=== PATIENT | male | born 1960 | race Caucasian/White ===

== ENCOUNTER 2017-04-23 19:02 | Emergency (ER) | payer BC, OTHER ==
[2017-04-23] MEDS ORDERED: Alum Hydrox/Mag Hydrox/Simeth 15 ML, Metoclopramide 5 MG, Lidocaine 2% 5 ML PO ONE ×3 (19:23)
[2017-04-23] MEDS ORDERED: Sodium Chloride 0.9% 1,000 ML IV ONE (19:23)
[2017-04-23] MEDS ORDERED: Pantoprazole 40 MG Vial IVPUSH ONE (19:23)
[2017-04-23] MEDS ORDERED: Ondansetron 4 MG/2 ML SDV IVPUSH ONE (19:24)
--- NOTE | 2017-04-23 19:24 | EDM.PDOC ---
ED HPI GENERAL MEDICAL PROBLEM - General Chief Complaint: Gastrointestinal Problem Stated Complaint: ACID REFLUX Time Seen by Provider: 04/23/17 19:24 Source of Information: Reports: Patient - History of Present Illness INITIAL COMMENTS - FREE TEXT/NARRATIVE: HISTORY AND PHYSICAL: History of present illness: [Patient has a history of acid reflux who presents with epigastric pain and burning that has increased over the last week, he has a 12 year history of acid reflux has no actual chest pain shortness of breath diaphoresis no radiation arm neck or jaw He follows with primary care out of [place] in [place], he is reestablishing here in [facility], his new primary is scheduling him for EGD. No fever nausea vomiting diarrhea constipation chest pain shortness breath headache dizziness palpitation about a urine symptoms Patient is aware of associated triggers for acid reflux he denies alcohol smoking or caffeine use he denies spine C foods he does use ibuprofen intermittently for neck pain and Excedrin for headaches but he minimizes this use due to the reflux ] Review of systems: As per history of present illness and below otherwise all systems reviewed and negative. Past medical history: As per history of present illness and as reviewed below otherwise noncontributory. Surgical history: As per history of present illness and as reviewed below otherwise noncontributory. Social history: No reported history of drug or alcohol abuse. Family history: As per history of present illness and as reviewed below otherwise noncontributory. Physical exam: HEENT: Atraumatic, normocephalic, pupils reactive, negative for conjunctival pallor or scleral icterus, mucous membranes moist, throat clear, neck supple, nontender, trachea midline. Lungs: Clear to auscultation, breath sounds equal bilaterally, chest nontender. Heart: S1S2, regular, negative for clicks, rubs, or JVD. Abdomen: Soft, nondistended, nontender. Negative for masses or hepatosplenomegaly. Negative for costovertebral tenderness. Pelvis: Stable nontender. Genitourinary: Deferred. Rectal: Deferred. Extremities: Atraumatic, negative for cords or calf pain. Neurovascular unremarkable. Neuro: Awake, alert, oriented. Cranial nerves II through XII unremarkable. Cerebellum unremarkable. Motor and sensory unremarkable throughout. Exam nonfocal. Diagnostics: []CBC, CMP, UA, troponin and amylase lipase EKG Therapeutics: [1 L normal saline bolus Zofran 8 mg IV GI cocktail Protonix 80 mg IV Continue omeprazole 40 mg daily Zantac 150 milligrams by mouth twice a day may benefit ] Impression: [Acid reflux] Definitive disposition and diagnosis as appropriate pending reevaluation and review of above. Epigastric Pain Score (Numeric/FACES): 2 - Related Data Allergies Allergy/AdvReac Type Severity Reaction Status Date / Time codeine Allergy Difficulty Verified 04/23/17 19:23 Breathing Home Meds: Home Meds Omeprazole Magnesium [Prilosec Otc] 20 mg PO BID 04/23/17 [History] ED ROS GENERAL - Review of Systems Review Of Systems: ROS reveals no pertinent complaints other than HPI. ED EXAM, GENERAL - Physical Exam Exam: See Below Course - Vital Signs Last Recorded V/S: Last Vital Signs Temp 36.4 C 04/23/17 19:19 Pulse 80 04/23/17 19:19 Resp 18 04/23/17 19:19 BP 134/93 H 04/23/17 19:19 Pulse Ox 97 04/23/17 19:19 - Orders/Labs/Meds Orders: Active Orders 24 hr Category Date Time Status Sodium Chloride 0.9% [Normal Saline] 1,000 ml Med 04/23/17 19:23 Active IV STAT Medication Orders Sodium Chloride (Normal Saline) 1,000 mls @ 999 mls/hr IV STAT ONE Stop: 04/23/17 20:23 Last Admin: 04/23/17 20:02 Dose: 999 mls/hr Labs: Laboratory Tests 04/23/17 04/23/17 Range/Units 19:40 19:40 WBC 7.33 (4.0-11.0) K/uL RBC 4.63 (4.50-5.90) M/uL Hgb 14.7 (13.0-17.0) g/dL Hct 42.2 (38.0-50.0) % MCV 91.1 (80.0-98.0) fL MCH 31.7 (27.0-32.0) pg MCHC 34.8 (31.0-37.0) g/dL RDW Std Deviation 43.5 (28.0-62.0) fl RDW Coeff of Will 13 (11.0-15.0) % Plt Count 220 (150-400) K/uL MPV 9.40 (7.40-12.00) fL Neut % (Auto) 56.9 (48.0-80.0) % Lymph % (Auto) 32.5 (16.0-40.0) % [place] % (Auto) 7.9 (0.0-15.0) % Eos % (Auto) 1.5 (0.0-7.0) % Baso % (Auto) 1.2 (0.0-1.5) % Neut # (Auto) 4.2 (1.4-5.7) K/uL Lymph # (Auto) 2.4 (0.6-2.4) K/uL [place] # (Auto) 0.6 (0.0-0.8) K/uL Eos # (Auto) 0.1 (0.0-0.7) K/uL Baso # (Auto) 0.1 (0.0-0.1) K/uL Nucleated RBC % 0.0 /100WBC Nucleated RBCs # 0 K/uL Sodium 140 (136-146) mmol/L Potassium 3.8 (3.5-5.1) mmol/L Chloride 108 (98-110) mmol/L Carbon Dioxide 23 (21-31) mmol/L BUN 13 (6.0-23.0) mg/dL Creatinine 0.9 (0.6-1.5) mg/dL Est Cr Clr Drug Dosing 84.67 mL/min Estimated GFR (MDRD) > 60.0 ml/min Glucose 80 (60-110) mg/dL Calcium 9.5 (8.8-10.8) mg/dL Total Bilirubin 0.9 (0.1-1.5) mg/dL AST 19 (5-40) IU/L ALT 21 (8-54) IU/L Alkaline Phosphatase 46 (40-150) Troponin I < 0.10 (0.0-0.29) NG/ML Total Protein 7.4 (6.0-8.0) g/dL Albumin 4.7 (3.5-5.0) g/dL Globulin 2.7 (2.0-3.5) g/dL Albumin/Globulin Ratio 1.7 (1.3-2.8) Amylase 43 (10-90) U/L Lipase 43 (7-80) U/L Meds: Medications Generic Name Dose Route Start Last Admin Trade Name Freq PRN Reason Stop Dose Admin Sodium Chloride 1,000 mls @ 999 mls/hr 04/23/17 19:23 04/23/17 20:02 Normal Saline IV 04/23/17 20:23 999 mls/hr STAT ONE Administration Discontinued Medications Generic Name Dose Route Start Last Admin Trade Name Liliana PRN Reason Stop Dose Admin Al Hydroxide/Mg Hydroxide 15 0 ml 04/23/17 19:23 04/23/17 19:55 ml/ Metoclopramide HCl 5 mg/ PO 04/23/17 19:24 15 each Lidocaine HCl 5 ml ONETIME ONE Administration Ondansetron HCl 8 mg 04/23/17 19:24 04/23/17 19:56 Zofran IVPUSH 04/23/17 19:25 8 mg ONETIME ONE Administration Pantoprazole Sodium 80 mg 04/23/17 19:23 04/23/17 20:03 Protonix Iv IVPUSH 04/23/17 19:24 80 mg .BOLUS ONE Administration Departure - Departure Time of Disposition: 20:21 Disposition: Home, Self-Care 01 Condition: Good Clinical Impression: Acid reflux - Discharge Information Referrals: PCP,None [Primary Care Provider] - Forms: ED Department Discharge Additional Instructions: Continue omeprazole 40 mg by mouth daily Zantac 150 mg by mouth twice a day Tums may benefit Avoid triggers of acid reflux as discussed Follow with your new primary and continue on with EGD The following information is given to patients seen in the emergency department who are being discharged to home. This information is to outline your options for follow-up care. We provide all patients seen in our emergency department with a follow-up referral. The need for follow-up, as well as the timing and circumstances, are variable depending upon the specifics of your emergency department visit. If you don't have a primary care physician on staff, we will provide you with a referral. We always advise you to contact your personal physician following an emergency department visit to inform them of the circumstance of the visit and for follow-up with them and/or the need for any referrals to a consulting specialist. The emergency department will also refer you to a specialist when appropriate. This referral assures that you have the opportunity for follow-up care with a specialist. All of these measure are taken in an effort to provide you with optimal care, which includes your follow-up. Under all circumstances we always encourage you to contact your private physician who remains a resource for coordinating your care. When calling for follow-up care, please make the office aware that this follow-up is from your recent emergency room visit. If for any reason you are refused follow-up, please contact the [facility] emergency department at and asked to speak to the emergency department charge nurse. - My Orders Last 24 Hours: My Active Orders 04/23/17 19:23 Sodium Chloride 0.9% [Normal Saline] 1,000 ml IV STAT - Assessment/Plan Last 24 Hours: My Active Orders 04/23/17 19:23 Sodium Chloride 0.9% [Normal Saline] 1,000 ml IV STAT
[2017-04-23 20:11] LABS: CHLORIDE,CL 108 mmol/L (98-110); SODIUM,NA 140 mmol/L (136-146)
== END 2017-04-23 20:43 | disposition home or self-care (01) ==
LOC: MW.ED 19:02
DX: K21.9 Gastro-esophageal reflux disease without esophagitis (principal); Z88.5 Allergy status to narcotic agent
CPT/HCPCS: 80053; 82150; 83690; 84484; 85025; 93005; 96361; 96374; 96375; 99284; A9270; C9113; J2405; J7040; 99283

== ENCOUNTER 2017-06-17 10:24 | Day surgery (SDC) | payer BC ==
[~2017-06-17 10:24] MED LIST: Lactated Ringers 1,000 ML IV SCH; Lidocaine 2% 5 ML SDV ONE; Propofol 200 MG/20 ML SDV ONE; Sodium Chloride 0.9% 10 ML Syringe FLUSH PRN; Sodium Chloride 0.9% 2.5 ML Syringe FLUSH PRN; fentaNYL 100 MCG/2 ML SDV ONE
--- NOTE | 2017-06-17 11:12 | PCM.PREANE ---
Preanesthetic Assessment - Anesthesia/Transfusion/Family Hx Anesthesia History: Prior Anesthesia Without Reaction Family History of Anesthesia Reaction: No Transfusion History: No Prior Transfusion(s) Intubation History: Unknown - Review of Systems General: No Symptoms Pulmonary: No Symptoms Cardiovascular: No Symptoms Gastrointestinal: Abdominal Pain, Difficulty Swallowing Neurological: No Symptoms Other: Reports: None - Physical Assessment O2 Sat by Pulse Oximetry: 96 Respiratory Rate: 16 Vital Signs: Last Vital Signs Temp 36.9 C 06/17/17 11:07 Pulse 77 06/17/17 11:07 Resp 16 06/17/17 11:07 BP 131/84 06/17/17 11:07 Pulse Ox 96 06/17/17 11:07 Height: 1.7 m Weight: 89.811 kg ASA Class: 2 Mental Status: Alert & Oriented x3 Airway Class: Mallampati = 2 Dentition: Reports: Normal Dentition Thyro-Mental Finger Breadths: 3 Mouth Opening Finger Breadths: 3 ROM/Head Extension: Full Lungs: Clear to Auscultation, Normal Respiratory Effort Cardiovascular: Regular Rate, Regular Rhythm - Allergies Allergies/Adverse Reactions: Allergies Allergy/AdvReac Type Severity Reaction Status Date / Time adhesive tape Allergy Rash Verified 06/15/17 10:52 codeine Allergy Difficulty Verified 06/15/17 10:51 Breathing - Blood Blood Available: No - Anesthesia Plan Pre-Op Medication Ordered: None - Acknowledgements Anesthesia Type Planned: MAC Pt an Appropriate Candidate for the Planned Anesthesia: Yes Alternatives and Risks of Anesthesia Discussed w Pt/Guardian: Yes Pt/Guardian Understands and Agrees with Anesthesia Plan: Yes PreAnesthesia Questionnaire HEENT History: Reports: Hard of Hearing Other HEENT History: uses reading glasses Gastrointestinal History: Reports: GERD Musculoskeletal History: Reports: Back Pain, Chronic, Fracture, Neck Pain, Chronic Other Musculoskeletal History: has pinched nerves in neck and back, hx of fx sternum and bilateral ankles Neurological History: Reports: Concussion, Headaches, Chronic, Head Trauma, Other (See Below) Other Neuro History: hx of motion sickness Endocrine/Metabolic History: Reports: Obesity/BMI 30+ - Past Surgical History GI Surgical History: Reports: Colonoscopy, EGD, Hernia, Inguinal (right inguinal hernia) Musculoskeletal Surgical History: Reports: Carpal Tunnel (bilateral CTR), Shoulder Surgery Other Musculoskeletal Surgeries/Procedures:: biceps and labrim repair - SUBSTANCE USE Smoking Status *Q: Never Smoker Recreational Drug Use History: No - HOME MEDS Home Medications: Home Meds Omeprazole Magnesium [Prilosec Otc] 20 mg PO BID 04/23/17 [History] traMADol [Ultram] 50 mg PO ASDIRECTED PRN 06/15/17 [History] - CURRENT (IN HOUSE) MEDS Current Meds: Current Medications Lactated Ringer's (Ringers, Lactated) 1,000 mls @ 125 mls/hr IV ASDIRECTED ANOOP Sodium Chloride (Saline Flush) 10 ml FLUSH ASDIRECTED PRN PRN Reason: Keep Vein Open Sodium Chloride (Saline Flush) 2.5 ml FLUSH ASDIRECTED PRN PRN Reason: Keep Vein Open Discontinued Medications Fentanyl (Sublimaze) Confirm Administered Dose 100 mcg .ROUTE .STK-MED ONE Stop: 06/17/17 08:47 Lidocaine (Xylocaine-Mpf 2%) Confirm Administered Dose 5 ml .ROUTE .STK-MED ONE Stop: 06/17/17 08:48 Propofol (Diprivan 20 Ml) Confirm Administered Dose 400 mg .ROUTE .STK-MED ONE Stop: 06/17/17 08:47
[2017-06-17] MEDS ORDERED: Propofol 200 MG/20 ML SDV ONE (12:16)
[2017-06-17] MEDS ORDERED: fentaNYL 100 MCG/2 ML SDV ONE (12:31)
--- NOTE | 2017-06-17 15:26 | PCM.OPNOTE ---
- General Post-Op/Procedure Note Date of Surgery/Procedure: 06/17/17 Operative Procedure(s): Diagnostic EGD and colonoscopy Findings: diverticulosis , gastritis, esophagitis Pre Op Diagnosis: Worsening heartburn, change in bowel habits Post-Op Diagnosis: Diverticulosis, gastritis, esophagitis Anesthesia Technique: MARIAELENA Primary Surgeon: Rocio Keita Condition: Good Free Text/Narrative:: Intake & Output 06/17/17 06/17/17 06/17/17 06:59 14:59 22:59 Intake Total 900 Balance 900
--- NOTE | 2017-06-18 21:03 | OR ---
SURGEON: ROCIO KEITA MD DATE OF PROCEDURE: 06/17/2017 PREOPERATIVE DIAGNOSES: Gastroesophageal reflux disease and change in bowel habits. POSTOPERATIVE DIAGNOSES: Gastritis and esophagitis, normal colonoscopy, diverticulosis. PROCEDURES PERFORMED: Diagnostic EGD and colonoscopy. ENDOSCOPIST: Rocio Keita M.D. ANESTHESIA: MAC. INSTRUMENT USED: Olympus endoscope and colonoscope. EXTENT OF EXAM: To the second portion of the duodenum, to the cecum. PREPARATION: Good. LIMITATIONS: None. INDICATIONS: The patient is a 57-year-old male who presents with changes in his bowel habits and worsening of his reflux. He was seen in the emergency room and treated with H2 tash and PPI therapy. Since then, his symptoms have gotten better and he has stopped his PPI therapy. We discussed the need for a diagnostic EGD and colonoscopy. We discussed the procedures as well as expected perioperative course. We discussed the risks, including bleeding, infection, or damage to surrounding structures including perforation. The patient verbalized understanding and wished to proceed. PROCEDURE IN DETAIL: The patient was brought into the endoscopy suite and placed in a left lateral decubitus position. A time-out was completed verifying the patient's name, age, date of , allergies, and procedure to be performed. A bite block was placed in the patient's mouth. Monitored anesthesia care was induced and continuous oxygen was provided via nasal cannula throughout the procedure. After adequate sedation was achieved, a well lubricated endoscope was placed in the patient's mouth and advanced under direct visualization to the level of the second portion of the duodenum. This appeared normal and a photograph was taken. The scope was then fully withdrawn while examining the color, texture, anatomy, and integrity of the mucosa of the upper GI tract. The duodenum appeared normal. The scope was brought into the stomach and a photograph taken of the GE junction as well as the pylorus. Both appeared normal. The patient appeared to have some mild gastritis. Biopsies were taken of the gastric body, antrum, and fundus and sent for H. pylori testing. Scope was brought into the distal esophagus. There appeared to be mild inflammation of the distal esophagus. The scope was then fully withdrawn and this portion of the procedure terminated. Digital rectal exam was performed. This exam was within normal limits. A well lubricated colonoscope was inserted in the rectum and advanced under direct visualization to the level of the cecum. Cecum was identified by both visual and anatomic landmarks. A photograph was taken of the cecal cap as well as the scope retroflexed within the cecum. The scope was then straightened out while examining the color, texture, anatomy, and integrity of the mucosa from the cecum to the anal canal. The patient was noted to have diverticulosis in the sigmoid colon. The scope was then brought into the rectum and retroflexed to allow visualization of the anal canal opening. This appeared normal and a photograph was taken. The scope was then straightened out and removed from the patient. The cecum to anus time was 6 minutes. The patient was transferred to the PACU in stable condition. ENDOSCOPIC DIAGNOSES: 1. Gastritis. 2. Esophagitis. 3. Diverticulosis. RECOMMENDATIONS: Follow up in clinic in 2 weeks. ALVARO JEWELL /[id number]
== END 2017-06-17 13:25 | disposition home or self-care (01) ==
LOC: MW.SDS 10:24
PROVIDERS: ATTEND Surgery
DX: K29.50 Unspecified chronic gastritis without bleeding (principal); K20.9 Esophagitis, unspecified; K57.30 Diverticulosis of large intestine without perforation or abscess without bleeding; K21.9 Gastro-esophageal reflux disease without esophagitis; Z98.890 Other specified postprocedural states; Z80.0 Family history of malignant neoplasm of digestive organs
CPT/HCPCS: 43239; 45378; J3010; J7120; 88305; 88312; J2704

== ENCOUNTER 2017-09-20 17:45 | Emergency (ER) | payer BC ==
--- NOTE | 2017-09-20 18:24 | EDM.PDOC ---
ED HPI GENERAL MEDICAL PROBLEM - General Chief Complaint: Headache Stated Complaint: HEADACHE Time Seen by Provider: 09/20/17 18:24 Source of Information: Reports: Patient History Limitations: Reports: No Limitations - History of Present Illness INITIAL COMMENTS - FREE TEXT/NARRATIVE: HISTORY AND PHYSICAL: []57-year-old male presents with headache History of Present Illness: []Patient has history of cluster headaches this headache has been going on for 3 days Patient generally takes Excedrin migraine and this does help with his headache Review of Systems: As per history of present illness and below otherwise all systems reviewed and negative. Past medical history: As per history of present illness and as reviewed below otherwise noncontributory. Surgical history: As per history of present illness and as reviewed below otherwise noncontributory. Social history: No reported history of drug or alcohol abuse. Family history: As per history of present illness and as reviewed below otherwise noncontributory. Physical exam: Alert and oriented gentleman who has erythematous eyes / slight edema. His questions appropriately in full sentences without any shortness of breath. HEENT: Atraumatic, normocehpalic, pupils reactive, negative for conjunctival pallor or scleral icterus, mucous membranes moist, throat clear, neck supple, nontender, trachea midline. Lungs: Clear to auscultation, breath sounds equal bilaterally, chest non tender. Heart: S1S2, regular, negative for clicks, rubs, or JVD. Extremities: Atraumatic, negative for cords or calf pain. Neurovascular unremarkable. Neuro: Awake, alert, oriented. Cranial nerves II through XII unremarkable. Cerebellum unremarkable. Motor and sensory unremarkable throughout. Exam nonfocal. Patient tolerated procedures well and headache has improved Recommended to patient that he go home and sleep Diagnostics: [] Therapeutics: [Ativan 1 mg IV Benadryl 25 IV Toradol 30 IV 1 L lactated Ringer's] Impression: [Cluster headache] Plan: [Discharged to home Sleep off work [address] Levi SIFUENTES [facility] [address] [place] [address], [address] [place] [address] Definitive disposition and diagnosis as appropriate pending reevaluation and review of above. Onset: Gradual Duration: Day(s): (3) Location: Reports: Head Quality: Reports: Same as Previous Episode Severity: Moderate Improves with: Reports: None Worsens with: Reports: None headache Pain Score (Numeric/FACES): 7 - Related Data Allergies Allergy/AdvReac Type Severity Reaction Status Date / Time adhesive tape Allergy Rash Verified 06/15/17 10:52 codeine Allergy Difficulty Verified 06/15/17 10:51 Breathing Home Meds: Home Meds Omeprazole Magnesium [Prilosec Otc] 20 mg PO BID 04/23/17 [History] Aspirin/Acetaminophen/Caffeine [Migraine Relief Caplet] 09/20/17 [History] Past Medical History HEENT History: Reports: Hard of Hearing Other HEENT History: uses reading glasses Gastrointestinal History: Reports: GERD Musculoskeletal History: Reports: Back Pain, Chronic, Fracture, Neck Pain, Chronic Other Musculoskeletal History: has pinched nerves in neck and back, hx of fx sternum and bilateral ankles Neurological History: Reports: Concussion, Headaches, Chronic, Head Trauma, Other (See Below) Other Neuro History: hx of motion sickness. Patient reports head injury in 1998 Psychiatric History: Reports: None Endocrine/Metabolic History: Reports: Obesity/BMI 30+ Hematologic History: Reports: None - Infectious Disease History Infectious Disease History: Reports: None - Past Surgical History GI Surgical History: Reports: Colonoscopy, EGD, Hernia, Inguinal Musculoskeletal Surgical History: Reports: Carpal Tunnel, Shoulder Surgery Other Musculoskeletal Surgeries/Procedures:: biceps and labrim repair Social & Family History - Family History Family Medical History: Noncontributory - Tobacco Use Smoking Status *Q: Unknown Ever Smoked Second Hand Smoke Exposure: No - Caffeine Use Caffeine Use: Reports: Coffee - Recreational Drug Use Recreational Drug Use: No Drug Use in Last 12 Months: No ED ROS GENERAL - Review of Systems Review Of Systems: ROS reveals no pertinent complaints other than HPI. - Physical Exam Exam: See Below (See dictation) Course - Vital Signs Last Recorded V/S: Last Vital Signs Temp 36.9 C 09/20/17 18:12 Pulse 90 09/20/17 18:12 Resp 16 09/20/17 18:12 BP 158/93 H 09/20/17 18:12 Pulse Ox 94 L 09/20/17 18:12 - Orders/Labs/Meds Orders: Active Orders 24 hr Category Date Time Status Oxygen Therapy, ED [RC] ASDIRECTED Care 09/20/17 18:30 Active Sodium Chloride 0.9% [Saline Flush] Med 09/20/17 18:30 Active 10 ml FLUSH ASDIRECTED PRN Sodium Chloride 0.9% [Saline Flush] Med 09/20/17 18:30 Active 2.5 ml FLUSH ASDIRECTED PRN Saline Lock Insert [OM.PC] Stat Oth 09/20/17 18:30 Ordered Medication Orders Sodium Chloride (Saline Flush) 10 ml FLUSH ASDIRECTED PRN PRN Reason: Keep Vein Open Sodium Chloride (Saline Flush) 2.5 ml FLUSH ASDIRECTED PRN PRN Reason: Keep Vein Open Meds: Medications Generic Name Dose Route Start Last Admin Trade Name Freq PRN Reason Stop Dose Admin Sodium Chloride 10 ml 09/20/17 18:30 Saline Flush FLUSH ASDIRECTED PRN Keep Vein Open Sodium Chloride 2.5 ml 09/20/17 18:30 Saline Flush FLUSH ASDIRECTED PRN Keep Vein Open Discontinued Medications Generic Name Dose Route Start Last Admin Trade Name Freq PRN Reason Stop Dose Admin Diphenhydramine HCl 25 mg 09/20/17 18:30 09/20/17 19:10 Benadryl IVPUSH 09/20/17 18:31 25 mg ONETIME ONE Administration Lactated Ringer's 1,000 mls @ 999 mls/hr 09/20/17 18:31 09/20/17 19:09 Ringers, Lactated IV 09/20/17 19:31 999 mls/hr .BOLUS ONE Administration Ketorolac Tromethamine 30 mg 09/20/17 18:33 09/20/17 19:10 Toradol IVPUSH 09/20/17 18:34 30 mg ONETIME ONE Administration Lorazepam 1 mg 09/20/17 18:30 09/20/17 19:11 Ativan IVPUSH 09/20/17 18:31 1 mg ONETIME ONE Administration Departure - Departure Time of Disposition: 20:00 Disposition: Home, Self-Care 01 Condition: Good Clinical Impression: Cluster headache syndrome - Discharge Information Instructions: Cluster Headache, [id number] Referrals: PCP,None [Primary Care Provider] - Anh Sims MD [Physician] - Forms: ED Department Discharge Additional Instructions: The following information is given to patients seen in the emergency department who are being discharged to home. This information is to outline your options for follow-up care. We provide all patients seen in our emergency department with a follow-up referral. The need for follow-up, as well as the timing and circumstances, are variable depending upon the specifics of your emergency department visit. If you don't have a primary care physician on staff, we will provide you with a referral. We always advise you to contact your personal physician following an emergency department visit to inform them of the circumstance of the visit and for follow-up with them and/or the need for any referrals to a consulting specialist. The emergency department will also refer you to a specialist when appropriate. This referral assures that you have the opportunity for followup care with a specialist. All of these measure are taken in an effort to provide you with optimal care, which includes your followup. Under all circumstances we always encourage you to contact your private physician who remains a resource for coordinating your care. When calling for followup care, please make the office aware that this follow-up is from your recent emergency room visit. If for any reason you are refused follow-up, please contact the [facility] emergency department at and asked to speak to the emergency department charge nurse. You were treated for cluster headaches Referral has been made for you to see the neurologist Dr. Anh Sims [facility] [address] [place] [address], [address] [place] [address] - My Orders Last 24 Hours: My Active Orders 09/20/17 18:30 Oxygen Therapy, ED [RC] ASDIRECTED Sodium Chloride 0.9% [Saline Flush] 10 ml FLUSH ASDIRECTED PRN Sodium Chloride 0.9% [Saline Flush] 2.5 ml FLUSH ASDIRECTED PRN Saline Lock Insert [OM.PC] Stat - Assessment/Plan Last 24 Hours: My Active Orders 09/20/17 18:30 Oxygen Therapy, ED [RC] ASDIRECTED Sodium Chloride 0.9% [Saline Flush] 10 ml FLUSH ASDIRECTED PRN Sodium Chloride 0.9% [Saline Flush] 2.5 ml FLUSH ASDIRECTED PRN Saline Lock Insert [OM.PC] Stat
[2017-09-20] MEDS ORDERED: diphenhydrAMINE 50 MG/ML SDV IVPUSH ONE (18:30)
[2017-09-20] MEDS ORDERED: LORazepam 2 MG/ML SDV IVPUSH ONE (18:30)
[2017-09-20] MEDS ORDERED: Sodium Chloride 0.9% 2.5 ML Syringe FLUSH PRN (18:30)
[2017-09-20] MEDS ORDERED: Sodium Chloride 0.9% 10 ML Syringe FLUSH PRN (18:30)
[2017-09-20] MEDS ORDERED: Lactated Ringers 1,000 ML IV ONE (18:31)
[2017-09-20] MEDS ORDERED: Ketorolac 30 MG/ML SDV IVPUSH ONE (18:33)
== END 2017-09-20 20:20 | disposition home or self-care (01) ==
LOC: MW.ED 17:45
DX: G44.009 Cluster headache syndrome, unspecified, not intractable (principal); Z88.5 Allergy status to narcotic agent; Z79.899 Other long term (current) drug therapy
CPT/HCPCS: 96361; 96374; 96375; 99283; J1200; J1885; J2060; J7120

== ENCOUNTER 2017-10-16 07:11 | Emergency (ER) | payer BC ==
[2017-10-16] MEDS ORDERED: Ondansetron 4 MG/2 ML SDV IVPUSH ONE (07:17)
[2017-10-16] MEDS ORDERED: Sodium Chloride 0.9% 1,000 ML IV ONE (07:17)
[2017-10-16] MEDS ORDERED: Ketorolac 30 MG/ML SDV IVPUSH ONE (07:17)
--- NOTE | 2017-10-16 07:19 | EDM.PDOC ---
ED HPI GENERAL MEDICAL PROBLEM - General Chief Complaint: General Stated Complaint: HEADACHE Time Seen by Provider: 10/16/17 07:18 Source of Information: Reports: Patient - History of Present Illness INITIAL COMMENTS - FREE TEXT/NARRATIVE: HISTORY AND PHYSICAL: History of present illness: []Patient with migraine history presents with 5 out of 10 headache denies nausea vomiting no scotomas, he has been treated through the emergency room in the past with Ativan, Benadryl, and Toradol with good result. He has been taking Imitrex 3 times daily without benefit he has appointment scheduled with neurology coming up within the next couple of weeks No fever nausea vomiting chills sweats no chest pain shortness breath dizziness or palpitation no bowel or urine symptoms Patient will take a taxi home post medication Review of systems: As per history of present illness and below otherwise all systems reviewed and negative. Past medical history: As per history of present illness and as reviewed below otherwise noncontributory. Surgical history: As per history of present illness and as reviewed below otherwise noncontributory. Social history: No reported history of drug or alcohol abuse. Family history: As per history of present illness and as reviewed below otherwise noncontributory. Physical exam: HEENT: Atraumatic, normocephalic, pupils reactive, negative for conjunctival pallor or scleral icterus, mucous membranes moist, throat clear, neck supple, nontender, trachea midline. Lungs: Clear to auscultation, breath sounds equal bilaterally, chest nontender. Heart: S1S2, regular, negative for clicks, rubs, or JVD. Abdomen: Soft, nondistended, nontender. Negative for masses or hepatosplenomegaly. Negative for costovertebral tenderness. Pelvis: Stable nontender. Genitourinary: Deferred. Rectal: Deferred. Extremities: Atraumatic, negative for cords or calf pain. Neurovascular unremarkable. Neuro: Awake, alert, oriented. Cranial nerves II through XII unremarkable. Cerebellum unremarkable. Motor and sensory unremarkable throughout. Exam nonfocal. Diagnostics: [CBC CMP UA ]Head CT no contrast Therapeutics: [1 L normal saline bolus Zofran 8 mg IV Toradol 30 mg IV ] Impression: [ headache ] Definitive disposition and diagnosis as appropriate pending reevaluation and review of above. Headache Pain Score (Numeric/FACES): 6 - Related Data Allergies Allergy/AdvReac Type Severity Reaction Status Date / Time adhesive tape Allergy Rash Verified 10/16/17 07:23 codeine Allergy Difficulty Verified 10/16/17 07:23 Breathing Home Meds: Home Meds Omeprazole Magnesium [Prilosec Otc] 20 mg PO BID 04/23/17 [History] Aspirin/Acetaminophen/Caffeine [Migraine Relief Caplet] 1 tab PO ASDIRECTED PRN 09/20/17 [History] Indomethacin 25 mg PO TID 10/16/17 [History] Past Medical History HEENT History: Reports: Hard of Hearing Other HEENT History: uses reading glasses Gastrointestinal History: Reports: GERD Musculoskeletal History: Reports: Back Pain, Chronic, Fracture, Neck Pain, Chronic Other Musculoskeletal History: has pinched nerves in neck and back, hx of fx sternum and bilateral ankles Neurological History: Reports: Concussion, Headaches, Chronic, Head Trauma, Other (See Below) Other Neuro History: hx of motion sickness. Patient reports head injury in 1998 Psychiatric History: Reports: None Endocrine/Metabolic History: Reports: Obesity/BMI 30+ Hematologic History: Reports: None - Infectious Disease History Infectious Disease History: Reports: None - Past Surgical History GI Surgical History: Reports: Colonoscopy, EGD, Hernia, Inguinal Musculoskeletal Surgical History: Reports: Carpal Tunnel, Shoulder Surgery Other Musculoskeletal Surgeries/Procedures:: biceps and labrim repair Social & Family History - Family History Family Medical History: Noncontributory - Tobacco Use Smoking Status *Q: Unknown Ever Smoked Second Hand Smoke Exposure: No - Caffeine Use Caffeine Use: Reports: Coffee - Recreational Drug Use Recreational Drug Use: No Drug Use in Last 12 Months: No ED ROS GENERAL - Review of Systems Review Of Systems: ROS reveals no pertinent complaints other than HPI. ED EXAM, GENERAL - Physical Exam Exam: See Below Course - Vital Signs Last Recorded V/S: Last Vital Signs Temp 97.5 F 10/16/17 07:20 Pulse 95 10/16/17 08:06 Resp 20 10/16/17 08:06 BP 141/93 H 10/16/17 08:06 Pulse Ox 95 10/16/17 08:06 - Orders/Labs/Meds Orders: Active Orders 24 hr Category Date Time Status Head wo Cont [CT] Stat Exams 10/16/17 07:31 Taken Labs: Laboratory Tests 10/16/17 10/16/17 Range/Units 07:29 07:29 WBC 5.02 (4.0-11.0) K/uL RBC 4.63 (4.50-5.90) M/uL Hgb 14.6 (13.0-17.0) g/dL Hct 42.6 (38.0-50.0) % MCV 92.0 (80.0-98.0) fL MCH 31.5 (27.0-32.0) pg MCHC 34.3 (31.0-37.0) g/dL RDW Std Deviation 44.8 (28.0-62.0) fl RDW Coeff of Will 13 (11.0-15.0) % Plt Count 208 (150-400) K/uL MPV 9.30 (7.40-12.00) fL Neut % (Auto) 58.9 (48.0-80.0) % Lymph % (Auto) 30.1 (16.0-40.0) % [place] % (Auto) 6.4 (0.0-15.0) % Eos % (Auto) 2.8 (0.0-7.0) % Baso % (Auto) 1.8 H (0.0-1.5) % Neut # (Auto) 3.0 (1.4-5.7) K/uL Lymph # (Auto) 1.5 (0.6-2.4) K/uL [place] # (Auto) 0.3 (0.0-0.8) K/uL Eos # (Auto) 0.1 (0.0-0.7) K/uL Baso # (Auto) 0.1 (0.0-0.1) K/uL Nucleated RBC % 0.0 /100WBC Nucleated RBCs # 0 K/uL Sodium 143 (136-148) mmol/L Potassium 3.9 (3.5-5.1) mmol/L Chloride 109 H (98-107) mmol/L Carbon Dioxide 23.7 (21.0-32.0) mmol/L BUN 15 (7.0-18.0) mg/dL Creatinine 0.9 (0.8-1.3) mg/dL Est Cr Clr Drug Dosing 84.67 mL/min Estimated GFR (MDRD) > 60.0 ml/min Glucose 106 (74-106) mg/dL Calcium 9.0 (8.5-10.1) mg/dL Total Bilirubin 0.6 (0.2-1.0) mg/dL AST 29 (15-37) IU/L ALT 90 H (14-63) IU/L Alkaline Phosphatase 73 (46-116) U/L Troponin I < 0.050 (0.000-0.056) ng/mL Total Protein 7.3 (6.4-8.2) g/dL Albumin 3.9 (3.4-5.0) g/dL Globulin 3.4 (2.0-3.5) g/dL Albumin/Globulin Ratio 1.1 L (1.3-2.8) Meds: Medications Discontinued Medications Generic Name Dose Route Start Last Admin Trade Name Freq PRN Reason Stop Dose Admin Diphenhydramine HCl 50 mg 10/16/17 07:37 10/16/17 08:04 Benadryl IVPUSH 10/16/17 07:38 50 mg ONETIME ONE Administration Sodium Chloride 1,000 mls @ 999 mls/hr 10/16/17 07:17 10/16/17 07:27 Normal Saline IV 10/16/17 08:17 999 mls/hr STAT ONE Administration Ketorolac Tromethamine 30 mg 10/16/17 07:17 10/16/17 07:27 Toradol IVPUSH 10/16/17 07:18 30 mg ONETIME ONE Administration Lorazepam 1 mg 10/16/17 07:37 10/16/17 08:03 Ativan IVPUSH 10/16/17 07:38 1 mg ONETIME ONE Administration Ondansetron HCl 8 mg 10/16/17 07:17 10/16/17 07:27 Zofran IVPUSH 10/16/17 07:18 8 mg ONETIME ONE Administration Departure - Departure Time of Disposition: 08:21 Disposition: Home, Self-Care 01 Condition: Good Clinical Impression: Headache - Discharge Information Referrals: PCP,None [Primary Care Provider] - Forms: ED Department Discharge Additional Instructions: Patient will be taking a taxi home post medication Return if symptoms persist or worsen Follow-up with urology as scheduled The following information is given to patients seen in the emergency department who are being discharged to home. This information is to outline your options for follow-up care. We provide all patients seen in our emergency department with a follow-up referral. The need for follow-up, as well as the timing and circumstances, are variable depending upon the specifics of your emergency department visit. If you don't have a primary care physician on staff, we will provide you with a referral. We always advise you to contact your personal physician following an emergency department visit to inform them of the circumstance of the visit and for follow-up with them and/or the need for any referrals to a consulting specialist. The emergency department will also refer you to a specialist when appropriate. This referral assures that you have the opportunity for follow-up care with a specialist. All of these measure are taken in an effort to provide you with optimal care, which includes your follow-up. Under all circumstances we always encourage you to contact your private physician who remains a resource for coordinating your care. When calling for follow-up care, please make the office aware that this follow-up is from your recent emergency room visit. If for any reason you are refused follow-up, please contact the [facility] emergency department at and asked to speak to the emergency department charge nurse. - My Orders Last 24 Hours: My Active Orders 10/16/17 07:31 Head wo Cont [CT] Stat - Assessment/Plan Last 24 Hours: My Active Orders 10/16/17 07:31 Head wo Cont [CT] Stat
[2017-10-16] MEDS ORDERED: LORazepam 2 MG/ML SDV IVPUSH ONE (07:37)
[2017-10-16] MEDS ORDERED: diphenhydrAMINE 50 MG/ML SDV IVPUSH ONE (07:37)
[2017-10-16 07:58] LABS: CHLORIDE,CL 109 mmol/L (98-107); SODIUM,NA 143 mmol/L (136-148)
--- NOTE | 2017-10-18 09:51 | CT ---
EXAM DATE: 10/16/17 PATIENT'S AGE: 57 Patient: JUAN C RM Facility: [place], [place] Site . Site : [id number] Study: CT Head WO CONT [id number]/[id number] 7:50:11 AM Ordering Physician: Gabby Hanson Final Report: HISTORY: Headache. TECHNIQUE: Noncontrast head CT. COMPARISON: No prior. FINDINGS: There is no acute intracranial hemorrhage or acute ischemic infarct. No mass effect or midline shift. No hydrocephalus. No acute loss of alas-white differentiation. No extra-axial collection or hematoma. Mastoid air cells are clear. Paranasal sinuses are clear. No acute skull fracture. IMPRESSION: No acute intracranial disease. Dictated by Chicho Bucio MD @ 10/16/2017 8:03:15 AM Please note that all CT scans at this facility use dose modulation, iterative reconstruction, and/or weight-based dosing when appropriate to reduce radiation dose to as low as reasonably achievable. Dictated by: Chicho Bucio MD @ 10/16/2017 08:03:21 (Electronic Signature) Report Signed [facility] Proxy. [facility]
== END 2017-10-16 08:33 | disposition home or self-care (01) ==
LOC: MW.ED 07:11
DX: R51 Headache (principal); Z88.5 Allergy status to narcotic agent; Z91.09 Other allergy status, other than to drugs and biological substances; Z79.899 Other long term (current) drug therapy; K21.9 Gastro-esophageal reflux disease without esophagitis; E66.9 Obesity, unspecified; Z68.31 Body mass index [BMI] 31.0-31.9, adult
CPT/HCPCS: 70450; 80053; 84484; 85025; 96361; 96374; 96375; 99284; J1200; J1885; J2060; J2405; J7040; 99283